=== PATIENT | male | born 1995 | race Caucasian/White ===

== ENCOUNTER 2018-03-25 19:33 | Emergency (ER) | payer SELFPAY ==
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
[2018-03-25] MEDS ORDERED: DIPH,PERTUSS(ACELL),TET VAC/PF 0.5 ML DISP.SYRIN IM ONE (20:15)
[2018-03-25] MEDS ORDERED: Lidocaine 1% 5ml(IM or SUTURE)(PAIN CLINIC) IJ ONE (20:16)
[2018-03-25] MEDS ORDERED: Lidocaine 2% 20ml Vial ONE (20:22)
[2018-03-25] MEDS ORDERED: Lidocaine 2% 20ml Vial IP ONE (20:44)
[2018-03-25] MEDS ORDERED: CEPHALEXIN 250 MG CAPSULE PO ONE (20:46)
[2018-03-25 22:11] VITALS: BP 128/79
[2018-03-26 07:12] LABS: APPEARANCE,URINE CLEAR (CLEAR); COLOR,URINE YELLOW (YELLOW); OCCULT BLOOD,URINE NEGATIVE (NEGATIVE); UROBILINOGEN URINE 0.2 Eu (0.2-1.0)
== END 2018-03-25 21:35 | disposition home or self-care (01) ==
LOC: ED 19:33
DX: S30.811A Abrasion of abdominal wall, initial encounter (principal); S70.311A Abrasion, right thigh, initial encounter; V86.99XA Unspecified occupant of other special all-terrain or other off-road motor vehicle injured in nontraffic accident, initial encounter; W26.8XXA Contact with other sharp object(s), not elsewhere classified, initial encounter; Y92.9 Unspecified place or not applicable; Y93.9 Activity, unspecified; Y99.9 Unspecified external cause status
CPT/HCPCS: 12002; 81002; 90471; 90715; 96372